=== PATIENT | female | born 1975 | race Caucasian/White ===

== ENCOUNTER 2018-05-08 17:06 | Inpatient (IN) | payer MEDICAID ==
[~2018-05-08] VITALS: Ht 157.5 cm; Wt 68.9 kg
[~2018-05-08 17:06] MED LIST: LR 1,000 ML IV.SOLN IV ONE; MIDAZOLAM HCL 5 MG/5 ML VIAL IVP ONE; PROPOFOL 200MG/ 20ML VIAL (DIPRIVAN) IV ONE; SEVOFLURANE 15 MIN GAS INH ONE; WATER FOR IRRIGATION,STERILE 1,000 ML IRRIG.SOLN IR ONE; fentaNYL CITRATE/PF 100 MCG/2 ML AMP IVP ONE
[2018-05-08 17:46] VITALS: BP_SYST 154
[2018-05-08] MEDS ORDERED: NACL 0.9% 1,000 ML IV ONE (17:58)
[2018-05-08] MEDS ORDERED: ONDANSETRON HCL 4 MG/2 ML VIAL IVP ONE (18:00)
[2018-05-08] MEDS ORDERED: KETOROLAC TROMETHAMINE 30 MG VIAL IVP ONE (18:15)
[2018-05-08] MEDS ORDERED: DIPHENHYDRAMINE INJ 50 MG/ML VIAL IVP ONE (18:15)
[2018-05-08 18:58] LABS: ANION GAP 9 (5-15); CALCIUM 8.6 mg/dL (8.4-11.0); CHLORIDE 102 mmol/L (98-107); CREATININE 0.66 mg/dL (0.55-1.30); GLUCOSE 92 mg/dL (70-99); POTASSIUM 4.1 mmol/L (3.5-5.1); SODIUM SERUM 137 mmol/L (136-145); UREA NITROGEN, BLOOD 14 mg/dL (8-21)
[2018-05-08 19:02] LABS: ALANINE AMINOTRANSFERASE 30 U/L (12-78); ALBUMIN 3.2 g/dL (3.4-4.8); AMYLASE 121 U/L (0-100); ASPARTATE AMINOTRANSFERASE 30 U/L (10-37); LIPASE 362 U/L (73-393); TOTAL BILIRUBIN 0.2 mg/dL (0.0-1.0)
[2018-05-08 19:04] LABS: INR 0.9 (0.8-1.2); PROTHROMBIN TIME 9.1 SECS (9.5-12.5)
[2018-05-08 19:13] LABS: ALCOHOL, BLOOD < 3 mg/dL (<10); GFR AFRICAN AMERICAN 125 mL/min (>90)
[2018-05-08 19:18] LABS: BILIRUBIN,URINE NEGATIVE (NEGATIVE); BLOOD, URINE 3+ (NEGATIVE); CLARITY/URINE CLOUDY (CLEAR); COLOR,URINE YELLOW (YELLOW); GLUCOSE,URINE NEGATIVE (NEGATIVE); KETONES,URINE TRACE (NEGATIVE); LEUKOCYTE ESTERASE ,URINE NEGATIVE (NEGATIVE); NITRITE, URINE NEGATIVE (NEGATIVE); PH,URINE 6.5 (5.0-8.0); PROTEIN URINE 1+ (NEGATIVE)
[2018-05-08 19:43] LABS: BARBITURATE, URINE NEGATIVE (NEG <=200); BENZODIAZEPINE, URINE NEGATIVE (NEG <=150); CANNABINOID, URINE NEGATIVE (NEG <=50); COCAINE, URINE NEGATIVE (NEG <=150); METHAMPHETAMINES SCREEN,URINE NEGATIVE (NEG <=500); OPIATE, URINE NEGATIVE (NEG <=100); PHENCYCLIDINE SCREEN,URINE NEGATIVE (NEG <=25); UR TRICYCLIC ANTIDEPRESSANTS NEGATIVE (NEG <=300); URINE AMPHETAMINE NEGATIVE (NEG <=500); URINE METHADONE NEGATIVE (NEG <=200); URINE OXYCODONE SCREEN NEGATIVE (NEG <=100); URINE PROPOXYPHENE SCREEN NEGATIVE (NEG <=300)
[2018-05-08 19:47] LABS: BACTERIA,URINE FEW /HPF (None Seen); MUCUS,URINE None Seen /LPF (None Seen); RBC,URINE 50-80 /HPF (0-3); WBC,URINE 0-3 /HPF (0-3)
[2018-05-08 20:03] LABS: RED BLOOD CELL COUNT(AUTO) 3.48 MIL/uL (4.2-6.2); WHITE BLOOD COUNT (AUTO) 9.7 K/uL (4.8-10.8)
[2018-05-08 20:05] LABS: HEMOGLOBIN 5.3 g/dL (12.0-16.0)
[2018-05-08 20:06] LABS: HEMATOCRIT 19.5 % (36-48)
[2018-05-08 20:07] LABS: MEAN CORPUSCULAR HEMOGLOBIN 15 pg (27-31); MEAN CORPUSCULAR HGB CONC 27 % (32-36); MEAN CORPUSCULAR VOLUME 56 fL (79.0-98.0); PLATELET COUNT (AUTO) 1172 K/uL (130-430); RED CELL DISTRIBUTION WIDTH 23.4 % (9.0-15.0)
[2018-05-08] MEDS ORDERED: ACETAMINOPHEN 325 MG TABLET PO PRN (21:30)
[2018-05-08 21:39] LABS: BAND % (MANUAL) 0 % (0-6); BASOPHILS % (MANUAL) 0 % (0-2); EOSINOPHILS % (MANUAL) 1 % (0-7); LYMPHOCYTES % (MANUAL) 33 % (20-46); MONOCYTES % (MANUAL) 12 % (0-11)
[2018-05-08 21:54] VITALS: BP_SYST 113
[2018-05-08] MEDS ORDERED: TEMAZEPAM 15 MG CAPSULE PO PRN (23:45)
[2018-05-09] MEDS ORDERED: FAMOTIDINE PF 20 MG/2 ML VIAL IVP SCH
[2018-05-09 00:16] LABS: TOTAL IRON BIND. CAPACITY 554 ug/dL (250-450)
[2018-05-09 00:33] VITALS: BP_SYST 113
[2018-05-09] MEDS: FAMOTIDINE 20 MG TABLET PO SCH (06:19)
[2018-05-09 08:00] VITALS: BP_SYST 109
[2018-05-09] MEDS: DIPHENHYDRAMINE HCL 25 MG CAPSULE PO PRN ×2 (09:06→20:49)
[2018-05-09] MEDS: MULTIVITAMINS TAB 1 TABLET PO SCH ×2 (09:06→20:49)
[2018-05-09] MEDS: SOD FERRIC GLUC COMPLEX/SUC 125 MG in NS 100 ML IV SCH (09:06)
[2018-05-09 10:16] LABS: MEAN CORPUSCULAR HGB CONC 29 % (32-36); MEAN CORPUSCULAR VOLUME 63 fL (79.0-98.0)
[2018-05-09 10:45] LABS: HEMATOCRIT 27.4 % (36-48); MEAN CORPUSCULAR HEMOGLOBIN 19 pg (27-31); RED BLOOD CELL COUNT(AUTO) 4.35 MIL/uL (4.2-6.2); WHITE BLOOD COUNT (AUTO) 6.5 K/uL (4.8-10.8)
[2018-05-09 10:47] LABS: PLATELET COUNT (AUTO) 1190 K/uL (130-430)
[2018-05-09 11:18] LABS: BASOPHILS % (MANUAL) 0 % (0-2); EOSINOPHILS % (MANUAL) 0 % (0-7); LYMPHOCYTES % (MANUAL) 20 % (20-46); MONOCYTES % (MANUAL) 9 % (0-11)
[2018-05-09 12:40] VITALS: BP_SYST 112
[2018-05-09 20:00] VITALS: BP_SYST 110
[2018-05-09] MEDS: ACETAMINOPHEN 325 MG TABLET PO PRN (20:50)
[2018-05-10 00:59] VITALS: BP_SYST 89
[2018-05-10] MEDS: FAMOTIDINE 20 MG TABLET PO SCH ×2 (06:16→18:05)
[2018-05-10 08:02] VITALS: BP_SYST 110
[2018-05-10] MEDS: MULTIVITAMINS TAB 1 TABLET PO SCH ×2 (08:20→20:48)
[2018-05-10] MEDS: DIPHENHYDRAMINE HCL 25 MG CAPSULE PO PRN ×2 (08:20→20:48)
[2018-05-10] MEDS: SOD FERRIC GLUC COMPLEX/SUC 125 MG in NS 100 ML IV SCH ×2 (08:21→15:51)
[2018-05-10 12:06] VITALS: BP_SYST 112
[2018-05-10 14:54] LABS: HEMOGLOBIN 7.9 g/dL (12.0-16.0); MEAN CORPUSCULAR HEMOGLOBIN 18 pg (27-31); MEAN CORPUSCULAR HGB CONC 28 % (32-36); MEAN CORPUSCULAR VOLUME 64 fL (79.0-98.0); RED BLOOD CELL COUNT(AUTO) 4.38 MIL/uL (4.2-6.2); RED CELL DISTRIBUTION WIDTH 29.8 % (9.0-15.0); WHITE BLOOD COUNT (AUTO) 8.8 K/uL (4.8-10.8)
[2018-05-10 15:04] LABS: PLATELET COUNT (AUTO) 1203 K/uL (130-430)
[2018-05-10 15:17] LABS: CALCIUM 8.1 mg/dL (8.4-11.0); CREATININE 0.56 mg/dL (0.55-1.30); POTASSIUM 4.1 mmol/L (3.5-5.1)
[2018-05-10 16:28] LABS: BAND % (MANUAL) 4 % (0-6); BASOPHILS % (MANUAL) 0 % (0-2); EOSINOPHILS % (MANUAL) 0 % (0-7); LYMPHOCYTES % (MANUAL) 20 % (20-46); MONOCYTES % (MANUAL) 7 % (0-11)
[2018-05-10 16:39] VITALS: BP_SYST 116
[2018-05-10 20:00] VITALS: BP_SYST 143
[2018-05-10] MEDS: ACETAMINOPHEN 325 MG TABLET PO PRN (20:48)
[2018-05-11] VITALS (7 sets, daily range): BP systolic 101–130
[2018-05-11] MEDS ORDERED: ONDANSETRON HCL 4 MG/2 ML VIAL IVP PRN ×2 (05:15→10:45)
[2018-05-11] MEDS: FAMOTIDINE 20 MG TABLET PO SCH ×2 (07:00→16:20)
[2018-05-11 08:21] LABS: CALCIUM 8.4 mg/dL (8.4-11.0); CREATININE 0.52 mg/dL (0.55-1.30); POTASSIUM 4.5 mmol/L (3.5-5.1)
[2018-05-11] MEDS: MULTIVITAMINS TAB 1 TABLET PO SCH (09:00)
[2018-05-11] MEDS ORDERED: fentaNYL CITRATE/PF 100 MCG/2 ML AMP IVP PRN ×2 (10:45)
[2018-05-11] MEDS: SOD FERRIC GLUC COMPLEX/SUC 125 MG in NS 100 ML IV SCH (16:19)
== END 2018-05-11 18:30 | disposition home or self-care (01) | DRG 517 ==
LOC: SED 17:06 → SMU 21:17
PROVIDERS: ADMIT Internal Medicine; ATTEND Internal Medicine
PROC: 30233N1 Transfusion of Nonautologous Red Blood Cells into Peripheral Vein, Percutaneous Approach (ICD-10-PCS; principal; 2018-05-08)
PROC: 0UDB8ZZ Extraction of Endometrium, Via Natural or Artificial Opening Endoscopic (ICD-10-PCS; 2018-05-11)
DX: N92.0 Excessive and frequent menstruation with regular cycle (principal); E44.1 Mild protein-calorie malnutrition; G43.909 Migraine, unspecified, not intractable, without status migrainosus; D50.9 Iron deficiency anemia, unspecified; A08.4 Viral intestinal infection, unspecified; D47.3 Essential (hemorrhagic) thrombocythemia; M79.10 Myalgia, unspecified site
CPT/HCPCS: 36415; 71045; 76856-TC; 80048; 80053; 80307; 81000-TC; 82150-TC; 82550-TC; 83540-TC; 83550-TC; 83605; 83690-TC; 84484; 84703; 85007; 85027; 85610-TC; 85730-TC; 86710; 86886; 86900; 86901; 86920; 87040-TC; 87081; 88305; 93005; 94760; 96361; 96374; 96375; 99285; G0481; G0482; J1200; J1885; J2250; J2405; J2704; J2916; J3010; J3490; J7050; J7120; P9021; Q0163

== ENCOUNTER 2018-06-04 09:41 | Emergency (ER) | payer MEDICAID ==
[~2018-06-04] VITALS: Ht 157.5 cm; Wt 68.9 kg
[2018-06-04 09:54] VITALS: BP_SYST 132
[2018-06-04] MEDS ORDERED: NACL 0.9% 1,000 ML IV ONE (10:03)
[2018-06-04 10:46] LABS: CALCIUM 8.2 mg/dL (8.4-11.0); CREATININE 0.45 mg/dL (0.55-1.30); HEMATOCRIT 34.3 % (36-48); HEMOGLOBIN 10.5 g/dL (12.0-16.0); POTASSIUM 4.2 mmol/L (3.5-5.1); RED BLOOD CELL COUNT(AUTO) 4.68 MIL/uL (4.2-6.2)
[2018-06-04 10:47] LABS: BASOPHILS % (AUTO) 0.6 % (0.0-2.0); EOSINOPHILS # (AUTO) 0.1 K/uL (0.0-0.4); EOSINOPHILS % (AUTO) 2.8 % (0.0-4.0); LYMPHOCYTES % (AUTO) 51.3 % (20.5-51.5); MEAN CORPUSCULAR HEMOGLOBIN 23 pg (27-31); MEAN CORPUSCULAR HGB CONC 31 % (32-36); MEAN CORPUSCULAR VOLUME 73 fL (79.0-98.0); MONOCYTES # (AUTO) 0.3 K/uL (0.0-1.0); MONOCYTES % (AUTO) 7.7 % (1.7-9.3); NEUTROPHILS # (AUTO) 1.5 K/uL (1.8-7.7); NEUTROPHILS % (AUTO) 37.6 % (40.0-70.0); RED CELL DISTRIBUTION WIDTH 39.2 % (9.0-15.0)
[2018-06-04 10:48] LABS: PLATELET COUNT (AUTO) 760 K/uL (130-430)
[2018-06-04 10:50] LABS: INR 0.9 (0.8-1.2); PROTHROMBIN TIME 9.4 SECS (9.5-12.5)
[2018-06-04 10:55] LABS: ALBUMIN 3.3 g/dL (3.4-4.8); TOTAL BILIRUBIN 0.2 mg/dL (0.0-1.0)
[2018-06-04 13:20] VITALS: BP_SYST 118
== END 2018-06-04 13:20 | disposition home or self-care (01) ==
LOC: SED 09:41
DX: N93.9 Abnormal uterine and vaginal bleeding, unspecified (principal); G43.909 Migraine, unspecified, not intractable, without status migrainosus; N83.202 Unspecified ovarian cyst, left side; D53.9 Nutritional anemia, unspecified
CPT/HCPCS: 36415; 76830-TC; 76857; 80053; 82150-TC; 83690-TC; 84702-TC; 85025; 85610-TC; 85730-TC; 99284

== ENCOUNTER 2021-01-02 08:22 | Emergency (ER) | payer MEDICAID ==
[~2021-01-02] VITALS: Ht 154.9 cm; Wt 108.9 kg
[2021-01-02 08:28] VITALS: BP_SYST 175
--- NOTE | 2021-01-02 08:28 | NUR ---
Patient to ER bed 8 to gown for evaluation. Side rails up. Report given to ASHLEY Rodriguez.
--- NOTE | 2021-01-02 08:30 | NUR ---
Pt. bib boyfriend with c/o pain to Right leg, knee and below, rates it 12/13, states fell about 0800 this morning while in the bathroom, contributes fall to a dropped foot denies any syncope or LOC
--- NOTE | 2021-01-02 08:34 | NUR ---
ER at bedside examining patient.
[2021-01-02] MEDS ORDERED: traMADol HCL HCL 50 MG TABLET (ULTRAM) PO ONE (08:45)
--- NOTE | 2021-01-02 08:45 | NUR ---
crutches given to pt. instructed on use and demonstrated, pt unable to use them, states to painful and to difficult due to drop foot, notified Dr. Leyva order for wheelchair
--- NOTE | 2021-01-02 08:51 | NUR ---
radiology at bedside for xrays
[2021-01-02] MEDS ORDERED: TRAM50TA PO (09:10)
[2021-01-02] MEDS ORDERED: IBUP-1969 PO (09:10)
[2021-01-02 09:56] VITALS: BP_SYST 167
--- NOTE | 2021-01-02 10:02 | NUR ---
Patient given written and verbal discharge instructions and verbalizes understanding. ER discussed with patient the results and treatment provided. Patient in stable condition. ID arm band removed. Rx of Motrin and Tramadol given. Patient educated on pain management and to follow up with PMD. Pain Scale 3. Opportunity for questions provided and answered. Medication side effect fact sheet provided.
== END 2021-01-02 10:02 | disposition home or self-care (01) ==
LOC: SED 08:22
DX: S92.351A Displaced fracture of fifth metatarsal bone, right foot, initial encounter for closed fracture (principal); W18.39XA Other fall on same level, initial encounter; Y93.89 Activity, other specified; Y92.89 Other specified places as the place of occurrence of the external cause; Y99.8 Other external cause status
CPT/HCPCS: 73590-TC; 99284